=== PATIENT | male | born 1940 | race Caucasian/White ===

== ENCOUNTER → 2017-05-26 | Outpatient (CLI) | payer MEDICARE, BC | LOC: HEART 5 07:30 | DX: R00.1 Bradycardia, unspecified (principal); R00.2 Palpitations; E78.5 Hyperlipidemia, unspecified; I10 Essential (primary) hypertension; I49.1 Atrial premature depolarization; E11.9 Type 2 diabetes mellitus without complications; R53.83 Other fatigue; R53.81 Other malaise; G45.9 Transient cerebral ischemic attack, unspecified; I21.19 ST elevation (STEMI) myocardial infarction involving other coronary artery of inferior wall | CPT/HCPCS: 78452; 93306; A9502; J2785 ==

== ENCOUNTER → 2021-11-01 | Outpatient (CLI) | payer MEDICARE, BC ==
[~2021-11-01] MED LIST: ARICEPT5 MG PO; AZITHROMYCIN250 MG PO; DIGOXIN125 MCG PO; DULCOLAX10 MG PR; ELIQUIS2.5 MG PO; ELIQUIS5 MG PO; GLUCOPHAGE500 MG PO; GUAIFENESIN-DM10 M1 PO; IPRAT-ALBUT 0.5-3 ML INH; JANUVIA100 MG PO; LEXAPRO10 MG PO; LOPRESSOR 50 MG50 MG PO; MIRALAX17 GM PO; NESINA25 MG PO; OMNICEF 300 MG300 MG PO; PERCOCET 5/325 T1 EA PO; PREDNISONE 50 M50 MG PO; PRINIVIL20 MG PO; SINEMET 10-1001 EACH PO; SPIRIVA RESPIMAT4 GM INH; SYMBICORT 160-1 INHA INH; ZOCOR80 MG PO
== END ==
LOC: KOH-I 14:34
DX: J18.9 Pneumonia, unspecified organism (principal); J44.9 Chronic obstructive pulmonary disease, unspecified
CPT/HCPCS: 71046